=== PATIENT | male | born 1995 | race Caucasian/White ===

== ENCOUNTER 2020-09-06 15:53 | Emergency (ER) | payer SELFPAY ==
--- NOTE | ~2020-09-06 | XR_ITS ---
EXAMINATION: XR chest 2V 09/06/2020 17:55 INDICATION: Shortness of breath. Chest pain. PROCEDURE: 2 view chest COMPARISON: No prior studies for comparison. FINDINGS: The lungs are clear. The cardiomediastinal silhouette is within normal limits. There are no pleural effusions. There is no pneumothorax suspected. IMPRESSION: 1: NO ACUTE CARDIOPULMONARY DISEASE. Reviewed, dictated and finalized at location A. [employer]
[2020-09-06 16:18] VITALS: BP 134/81; PULSE 88; RESP 17; TEMP 36.5; O2SAT 100
--- NOTE | 2020-09-06 16:22 | ECG_ITS ---
Measurements Intervals [place] Rate: 62 P: 27 CT: 198 QRS: 59 QRSD: 104 T: 29 QT: 366 QTc: 372 Interpretive Statements SINUS RHYTHM NORMAL ECG Electronically Signed On 09-06-2020 16:55:34 [employer] by Chava Richards D.O.
[2020-09-06 16:33] VITALS: PULSE 61
[2020-09-06 17:11] LABS: Basophils Percent Auto 0.5 % (0.2-1.2); Eosinophils Absolute Auto 0.1 K/mm3 (0-0.3); Eosinophils Percent Auto 1.6 % (0-4.4); Hematocrit 46.8 % (42.0-52.0); Hemoglobin 16.5 g/dL (14.0-18.0); Immature Granulocyte Absolute 0.02 K/mm3 (0.00-0.031); Immature Granulocyte Percent A 0.3 % (0-0.5); Lymphocytes Absolute Auto 2.56 K/mm3 (0.9-3.2); Lymphocytes Percent Auto 33.8 % (18.3-44.2); Mean Corpuscular HGB Conc 35.3 g/dl (32-36); Mean Corpuscular Hemoglobin 29.4 pg (26-34); Mean Corpuscular Volume 83.3 fl (80-100); Mean Platelet Volume 9.4 fl (7.4-10.4); Monocytes Absolute Auto 0.6 K/mm3 (0.1-0.6); Monocytes Percent Auto 7.5 % (2.6-8.5); Neutrophils Absolute Auto 4.3 K/mm3 (1.3-6.7); Neutrophils Percent Auto 56.3 % (45.5-73.1); Platelet Count Result 253 k/mm3 (150-375); Red Blood Count 5.62 M/mm3 (4.6-6.20); Red Cell Distribution Width 12.4 % (11.5-14.5); White Blood Count 7.6 K/mm3 (4.5-10.0)
[2020-09-06] MEDS: KETOROLAC (*BKC) 60 MG/2 ML VIAL IM (17:11)
[2020-09-06 17:23] LABS: Anion Gap 7 mmol/L (8-16); Blood Urea Nitrogen 15 mg/dL (9-20); Calcium 9.7 mg/dL (8.4-10.2); Carbon Dioxide 33 mmol/L (22-30); Chloride 101 mmol/L (98-107); Estimated CRCL calculation 136 ml/min; Estimated Glomerular Filt Rate > 60; Glucose 74 mg/dL (75-110); Potassium 3.8 mmol/L (3.4-5.0); Sodium 141 mmol/L (137-145)
[2020-09-06 17:30] LABS: D Dimer 0.27 ug/mL (<0.48)
--- NOTE | 2020-09-06 18:12 | ED.GENADULT ---
HPI - General Adult General Chief complaint: Unspecified Stated complaint: Difficulty breathing Time Seen by Provider: 09/06/20 16:13 History of Present Illness HPI narrative: Patient is a 25-year-old male who presents ER with concerns that he is having difficulty breathing. Reports he has some discomfort in his lower lungs bilaterally and feels like he has to force himself to take a deep breath because he is not taking adequate breaths. No sharp pains in the chest or back. No fevers or chills or sweats. No runny nose/sore throat/productive cough. No known sick contacts. Denies anxiety. Related Data Allergies Allergy/AdvReac Type Severity Reaction Status Date / Time azithromycin [From Zithromax] Allergy Hives Verified 09/06/20 16:34 Review of Systems Review of Systems: All systems reviewed & are unremarkable except as noted in HPI and below Constitutional: Constitutional: Denies chills, Denies fatigue and Denies fever(s) ENT: Denies nasal congestion, Denies sinus pressure and Denies sore throat Cardiovascular: Cardiovascular: Reports chest pain, Denies leg edema and Reports dyspnea Respiratory: Respiratory: Denies cough, Reports dyspnea, Denies dyspnea on exertion and Denies wheezing PMFSH Past Medical History Medical History (Updated 09/06/20 @ 18:20 by Rivera Armando MD) Healthy adult male Surgical History Surgical History (Updated 09/06/20 @ 18:15 by Rivera Armando MD) No history of previous surgery Social History Social History (Updated 09/06/20 @ 18:15 by Rivera Armando MD) Smoking status: Never smoker Gender identity (if verbalized by the patient): Male Exam Narrative: Exam Narrative: GENERAL: Well-appearing, well-nourished, and in no acute distress. HEAD: Normocephalic, atraumatic. CHEST: Clear to auscultation. No respiratory distress. HEART: Regular rate and rhythm. Normal peripheral pulses. ABDOMEN: Soft, nontender, nondistended. EXTREMITIES: Normal range of motion. No edema. SKIN: Warm, dry, no rash. NEURO: Alert and oriented x3. PSYCH: Normal mood and affect. Course Course Emergency Course: Unremarkable evaluation. Toradol given for discomfort and help. Vital Signs Vital signs: Vital Signs Temperature 97.7 F 09/06/20 16:18 Pulse Rate 88 12/22/20 16:18 Respiratory Rate 17 09/06/20 16:18 Blood Pressure 134/81 09/06/20 16:18 Pulse Oximetry 100 09/06/20 16:18 Temperature 97.7 F 09/06/20 16:18 Pulse Rate 61 09/06/20 16:33 Respiratory Rate 17 09/06/20 16:18 Blood Pressure 134/81 09/06/20 16:18 Pulse Oximetry 100 09/06/20 16:18 Medical Decision Making Vital Signs Vital Signs: Vital Signs Temperature 97.7 F 09/06/20 16:18 Pulse Rate 88 09/06/20 16:18 Respiratory Rate 17 09/06/20 16:18 Blood Pressure 134/81 09/06/20 16:18 Pulse Oximetry 100 09/06/20 16:18 Temperature 97.7 F 09/06/20 16:18 Pulse Rate 61 09/06/20 16:33 Respiratory Rate 17 09/06/20 16:18 Blood Pressure 134/81 09/06/20 16:18 Pulse Oximetry 100 09/06/20 16:18 Lab Data Result diagrams: 09/06/20 17:04 09/06/20 17:04 Labs: Lab Results 09/06/20 09/06/20 09/06/20 Range/Units 17:04 17:04 17:04 WBC 7.6 (4.5-10.0) K/mm3 RBC 5.62 (4.6-6.20) M/mm3 Hgb 16.5 (14.0-18.0) g/dL Hct 46.8 (42.0-52.0) % MCV 83.3 (80-100) fl MCH 29.4 (26-34) pg MCHC 35.3 (32-36) g/dl RDW 12.4 (11.5-14.5) % Plt Count 253 (150-375) k/mm3 MPV 9.4 (7.4-10.4) fl Immature Gran % (Auto) 0.3 (0-0.5) % Neut % (Auto) 56.3 (45.5-73.1) % Lymph % (Auto) 33.8 (18.3-44.2) % Wayne % (Auto) 7.5 (2.6-8.5) % Eos % (Auto) 1.6 (0-4.4) % Baso % (Auto) 0.5 (0.2-1.2) % Lymph # (Auto) 2.56 (0.9-3.2) K/mm3 Wayne # (Auto) 0.6 (0.1-0.6) K/mm3 Eos # (Auto) 0.1 (0-0.3) K/mm3 Baso # (Auto) 0.0 (0.0-0.1) K/mm3 Abs Immat Gran (auto) 0.02 (0.00-0.03
[2020-09-06 18:39] VITALS: BP 130/63; PULSE 60; RESP 12; O2SAT 100
== END 2020-09-06 18:40 | disposition home or self-care (01) ==
PROVIDERS: Emergency Provider Emergency Medicine
DX: R09.1 Pleurisy (principal)
CPT/HCPCS: 36415; 71046; 80048; 85025; 85380; 93005; 96372; 99283; J1885